=== PATIENT | male | born 1950 | race Caucasian/White ===

== ENCOUNTER 2021-12-03 16:24 | Emergency (ER) | payer MEDICARE, SELFPAY ==
--- NOTE | ~2021-12-03 | XR_ITS ---
EXAMINATION: XR HAND, LEFT CLINICAL INFORMATION: Cut with alfonso [facility] COMPARISON: None TECHNIQUE: PA, lateral, and oblique views of the left hand. FINDINGS: Laceration through the distal third finger involving the finger nail and the medial tuft of the distal phalanx which is mildly distracted/displaced. No additional fracture. No dislocation. The joint spaces throughout the hand and wrist are maintained. XR/XR hand LT 2V IMPRESSION: Soft tissue laceration of the distal end of the third finger with osseous involvement and fracture of the medial tuft of the third distal phalanx.
[2021-12-03 17:25] VITALS: BP 142/98; PULSE 90; RESP 18; TEMP 36.6; O2SAT 98; BMI 26.6
[2021-12-03] MEDS: Lidocaine HCl 1 % MPF 5 ML VIAL SUBCUT (18:23)
[2021-12-03] MEDS: Diphth,Pertus(ACell),Tet Adult 0.5 ML SYRINGE IM (18:24)
--- NOTE | 2021-12-03 18:27 | ED_ITS ---
HPI - Wound/Laceration General Chief Complaint: Wound/Laceration Stated Complaint: left finger laceration Time Seen by Provider: 12/03/21 17:53 Source: patient Mode of arrival: ambulatory History of Present Illness HPI narrative: 71-year-old male with no significant past medical history presenting to the ED complaining left middle finger laceration s/p using mophead trimmer and wrapper this afternoon. Denies taking anticoagulation. Denies numbness, tingling, weakness, decreased ROM, injury to other area. Tetanus unknown Onset (ago): hour(s) Related Data Previous Rx's Medication Instructions Recorded cephalexin 500 mg capsule 500 mg PO QID 7 days #28 caps 12/03/21 oxycodone-acetaminophen 5 mg-325 1 tab PO Q6H PRN pain (scale score 12/03/21 mg tablet (Percocet) 7-10) 3 days #9 tabs Allergies Allergy/AdvReac Type Severity Reaction Status Date / Time oxcarbazepine [OXCARBAZEPINE] Allergy Severe DRESS Unverified 02/07/20 16:22 SYNDROME cat dander [CAT] Allergy Unknown UNKNOWN Unverified 02/07/20 16:22 dog dander [DOG] Allergy Unknown UNKNOWN Unverified 02/07/20 16:22 ENVIRONMENTAL Allergy Unknown UNKNOWN Uncoded 02/07/20 16:22 SEAFOOD Allergy Unknown UNKNOWN Uncoded 02/07/20 16:22 Review of Systems Review of Systems: Constitutional:No Fever, No Chills ENT/Mouth: No Ear Pain, No Nasal Congestion, No sore throat, No Rhinorrhea, No Swallowing Difficulty Cardiovascular: No Chest Pain, No SOB Respiratory: No Cough Gastrointestinal: No Nausea, No Vomiting, No Abdominal pain Genitourinary: No Dysuria, No Urinary Frequency, No Hematuria, No Flank Pain Musculoskeletal: + joint pain, No Myalgias, No Joint Swelling Skin: + Skin Lesions, No rash Neuro: No Weakness, No Numbness, No Paresthesias Yes all other systems are reviewed and are negative [facility] Past Medical History Attestation statement: The following information was validated with the patient. Social History Social History Advance Directives: No Advance Directives Information Provided: Yes Physical Exam Vital Signs: Vital Signs: Last Vital Signs Temp 98 F 12/03/21 17:25 Pulse 90 12/03/21 17:25 Resp 18 12/03/21 17:25 BP 142/98 H 12/03/21 17:25 Pulse Ox 98 12/03/21 17:25 O2 Del Method 12/03/21 17:25 BMI result Body Mass Index 26.6 Const: General: cooperative, healthy appearing and no acute distress Duong entation/consciousness: patient oriented x3 Limitations: no limitations HEENT: Head: Yes normal to inspection and Yes atraumatic Ears: hearing grossly normal bilaterally General nose exam: Normal external nose present Face and sinus: Yes normal facial exam Eyes: General: appearance normal, both eyes and all related structures EOM: EOMs intact bilaterally Neck: Neck: Yes normal visual inspection and Yes no meningeal signs Resp: Effort & Inspection: normal respiratory effort and no respiratory distress Cardio: Rate: regular rate Heart sounds: S1 normal heart sound present and S2 normal heart sound present Peripheral pulses: radial pulses present and ulnar radial pulses present Skin: Rashes: no rashes Neuro: General: patient oriented x3, tone normal and no meningeal signs Gait exam (Neuro): Normal gait present Extrem: Other: Please refer to images above of laceration to left distal middle finger through nail bed. Bleeding controlled. No visible bone. Full range of motion to digit and hand intact. Sensation intact to light touch. [id number] opposition intact Course Course Course Narrative: Spoke with orthopedic KIRBY Hernandez to aid in patient getting close follow-up XR hand LT 2V IMPRESSION: Soft tissue laceration of the distal end of the third finger with osseous involvement and fracture of the medial tuft of the third distal phalanx. >> after wound repaired with sutures dressing applied and finger splint applied MDM - Wound/Laceration MDM Narrative Medical decision making narrative: 71-year-old male with no significant past medical history presenting to the ED complaining left middle finger laceration s/p using mophead trimmer and wrapper this afternoon. On exam vital signs stable, NAD, well-appearing, please refer to images above. Concern for open fracture. No evidence of tendon or nerve injury Plan: X-ray, update tetanus, repair laceration Differential Diagnosis Differential diagnosis: Likely laceration Medical Records Attestation: I reviewed the patient's medical records. Lab Data Attestation: I reviewed the patient's lab results. Procedures Laceration Laceration 1: Site: hand Side (If applicable): left Size (cm): 3 Description: linear Depth: simple, single layer Local Anesthetic: lidocaine 1% (Digital block) Amount of anesthesia used (mL): 4 Pre-repair: wound explored, irrigated extensively and wound margins revised Skin layer closed with: nylon Size (cm): 3-0 Number of sutures: 9 Technique: simple, interrupted and other (Dermabond also used to reinforce nail placement) Discharge Plan Discharge Clinical Impression: Finger laceration, Fracture of distal phalanx of finger Patient Disposition: Home, Self-Care Instructions: Finger Laceration (ED) Additional Instructions: YOU NEED TO FOLLOW-UP WITH A HAND SPECIALIST You have a fracture of the tip of her finger, keep splint on, dry and clean. You a deep laceration of your finger that was repaired today in the ED Keflex as an antibiotic please take as prescribed. Additionally Percocet is an opiate pain medication, take only when pain is severe for the next 3 days. Percocet has Tylenol mixed in do not exceed 4 g in 1 day. You may also take Motrin Keep sutures dry and clean You need to return to any emergency department or urgent care in 7-10 days for suture removal Apply bacitracin and or Neosporin daily If area begins look infected, is red, there is drainage, streaking, or you have fever please return to the emergency department Prescriptions: New cephalexin 500 mg capsule 500 mg PO QID 7 Days Qty: 28 0RF oxycodone-acetaminophen [Percocet] 5-325 mg tablet 1 tab PO Q6H PRN (Reason: pain (scale score 7-10)) 3 Days Qty: 9 0RF Rx Instructions: Partial Fill upon patient request. Referrals: Claribel Morris MD [Physician] - 2 days
[2021-12-03] MEDS: oxyCODONE HCl Immed Release 5 MG TABLET PO (19:40)
[2021-12-03] MEDS: cephALEXin 500 MG CAPSULE PO (19:41)
== END 2021-12-03 19:49 | disposition home or self-care (01) ==
PROVIDERS: Emergency Provider Emergency Medicine; PCP Internal Medicine
DX: S62.623A Displaced fracture of middle phalanx of left middle finger, initial encounter for closed fracture (principal); S61.213A Laceration without foreign body of left middle finger without damage to nail, initial encounter; S60.413A Abrasion of left middle finger, initial encounter; W29.3XXA Contact with powered garden and outdoor hand tools and machinery, initial encounter; Y93.9 Activity, unspecified; Y92.007 Garden or yard of unspecified non-institutional (private) residence as the place of occurrence of the external cause; Y99.9 Unspecified external cause status; Z79.899 Other long term (current) drug therapy
CPT/HCPCS: 12042; 29130; 73120; 90471; 90715; 99283; 99284

== ENCOUNTER → 2021-12-09 10:41 | Outpatient (BNVA) | payer MEDICARE, SELFPAY | PROVIDERS: PCP Internal Medicine; Visit Provider Physician Assistant | DX: S61.219A Laceration without foreign body of unspecified finger without damage to nail, initial encounter (principal); S62.639A Displaced fracture of distal phalanx of unspecified finger, initial encounter for closed fracture | CPT/HCPCS: 99202 ==

== ENCOUNTER → 2021-12-18 11:17 | Outpatient (BNVA) | payer MEDICARE, SELFPAY | PROVIDERS: PCP Internal Medicine; Visit Provider Physician Assistant | DX: S62.633A Displaced fracture of distal phalanx of left middle finger, initial encounter for closed fracture (principal); S61.213A Laceration without foreign body of left middle finger without damage to nail, initial encounter | CPT/HCPCS: 99212 ==

== ENCOUNTER 2023-11-14 15:44 | Outpatient (AMB) | payer MEDICARE, SELFPAY ==
--- NOTE | 2023-11-14 13:06 | MHC.OFFVISPS ---
Intake Intake Visit Reasons: depression Assistant Media Planner Required: No Allergies oxcarbazepine [OXCARBAZEPINE] Allergy (Severe, Unverified 12/18/21 11:23) DRESS SYNDROME cat dander [CAT] Allergy (Unknown, Unverified 12/18/21 11:23) UNKNOWN dog dander [DOG] Allergy (Unknown, Unverified 12/18/21 11:23) UNKNOWN ENVIRONMENTAL Allergy (Unknown, Uncoded 12/18/21 11:23) UNKNOWN SEAFOOD Allergy (Unknown, Uncoded 12/18/21 11:23) UNKNOWN HPI- Psychiatric Chief Complaint: depression HPI Narrative: pt is 2.5 + yrs sober; he has been compliant with meds except for topomax which he has not had for 2+ weeks after he ran out of refills. 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 He denies any other mdical changes; no side effects from meds; we discussed possible slow taper in future to decrease the overall number of medication he is on. Past Psychiatric History: He reports he has been to rehabs. 2 detox 2018 and in[facility] [employer] [facility] [employer] started drinking around age 20. First time tried to get sober and get tx was 22 yrs ago. He 32 years ago. most recent inpatient november 2020 went to [facility] and then relapsed shortly after. He reports no legal issues , no DUIs. He says he is staying home mostly but his family is concerned about him drinking. He does admit upon questioning that he is concerned too. Subjective Subjective Subjective Medication Compliance: Yes Side effects from medications: No Review of Systems Medical Review of Systems: unchanged Mental Status Exam Mental Status Exam Patient Appearance: Well Grooomed and Appropriate Patient Orientation: Person, Place, Time and Situation Level of Consciousness: Awake and Appropriate Patient Behavior: Appropriate and Anxious Mood Description: Nervous Affect Description: Anxious Patient Cognition Impaired: No Ability to Follow Directions: Good Speech Pattern: Clear Memory Description: Intact Hallucinations: None Delusions: Not Present Thought Process: Intact and Goal Oriented Thought Content: positive for Intact and positive for Goal Oriented Judgement: Fair Assessment and Plan Assessment & Plan (1) Major depressive disorder, recurrent episode with anxious distress: Status: Acute Code(s): F33.9 - Major depressive disorder, recurrent, unspecified (2) SILAS (generalized anxiety disorder): Status: Acute Code(s): F41.1 - Generalized anxiety disorder (3) Alcohol dependence in sustained full remission: Status: Acute Code(s): F10.21 - Alcohol dependence, in remission Plan restart topomax 25 mg tid continue below meds Medications: New topiramate 25 mg PO TID 90 tabs 3RF bupropion HCl XL (Wellbutrin XL) 300 mg PO QAM 90 tabs 1RF gabapentin 300 mg PO TID 90 caps 1RF hydroxyzine HCl 50 mg PO TID 90 tabs 2RF Refilled acamprosate 666 mg (2 x 333 mg) PO TID 180 tabs 1RF duloxetine 60 mg PO DAILY 90 caps 1RF mirtazapine 15 mg PO BEDTIME 90 tabs 1RF Counseling and coordination of Care Pt. Self Management counseling: Exercise, Maintenance-social rhythm, Mindfulness, Mod caffeine/ETOH intake, Sleep hygiene and General coping skills Medication management counseling: Effectiveness, Side effects, Dosing range, Duration, Drug interaction and Adherence Diagnosis and Prognosis Counseling: Accuracy of diagnosis, Prognosis over time, Impact of diagnosis on life functions, Impact of family relationship, Problematic behaviors secondary to diagnosis and Adequacy of current interventions Details: I spent 45 minutes reviewing the record, seeing the patient and documenting in the medical record. Counseling provided to the patient/caregiver as outlined below. Addressed patient/caregiver concerns regarding current medication regime including effective adherence. Addressed patient/caregiver concerns regarding diagnosis and prognosis including accuracy of diagnosis, prognosis over time, impact of diagnosis. Addressed patient/caregiver concerns regarding impact of recent stressors. [facility] Social History Patient Tobacco Use Status: Current everyday Tobacco user Current occupational status: retired Current occupation: rt hand Social History: lives with Substance History: etoh - stopped 2.5 yrs ago Trauma History: none Coding Level of Care Code Est Pt Level 5 (02189) Diagnoses Major depressive disorder, recurrent episode with anxious distress F33.9 SILAS (generalized anxiety disorder) F41.1 Alcohol dependence in sustained full remission F10.21
== END 2023-11-14 16:28 | disposition home or self-care (01) ==
LOC: HO.HOP 15:44
PROVIDERS: PCP Internal Medicine; Visit Provider Clinical Nurse Specialist Psychiatric/Mental Health
DX: F33.2 Major depressive disorder, recurrent severe without psychotic features (principal); F41.1 Generalized anxiety disorder; F10.21 Alcohol dependence, in remission
CPT/HCPCS: 99215

== ENCOUNTER → 2023-11-14 15:44 | Outpatient (BNVA) | payer MEDICARE, SELFPAY | PROVIDERS: PCP Internal Medicine; Visit Provider Clinical Nurse Specialist Psychiatric/Mental Health | DX: F33.9 Major depressive disorder, recurrent, unspecified (principal); F41.1 Generalized anxiety disorder; F10.21 Alcohol dependence, in remission; Z79.899 Other long term (current) drug therapy | CPT/HCPCS: 99212 ==

== ENCOUNTER 2024-01-31 13:57 | Outpatient (AMB) | payer MEDICARE, SELFPAY ==
--- NOTE | 2024-01-31 14:11 | MHC.OFFVISPS ---
Intake Intake Visit Reasons: depression Electrical Supervisor Required: No Allergies oxcarbazepine [OXCARBAZEPINE] Allergy (Severe, Unverified 12/18/21 11:23) DRESS SYNDROME cat dander [CAT] Allergy (Unknown, Unverified 12/18/21 11:23) UNKNOWN dog dander [DOG] Allergy (Unknown, Unverified 12/18/21 11:23) UNKNOWN ENVIRONMENTAL Allergy (Unknown, Uncoded 12/18/21 11:23) UNKNOWN SEAFOOD Allergy (Unknown, Uncoded 12/18/21 11:23) UNKNOWN Medication List - Last Reconciled 01/31/24 by Rehana Ahmadi APRN acamprosate 666 mg (2 x 333 mg) PO TID albuterol sulfate 90 mcg/actuation inhalation amlodipine 2.5 mg PO DAILY bupropion HCl XL (Wellbutrin XL) 300 mg PO QAM duloxetine 60 mg PO DAILY finasteride 5 mg PO DAILY gabapentin 300 mg PO TID hydroxyzine HCl 50 mg PO TID hydroxyzine pamoate 50 mg PO TID losartan 100 mg PO DAILY mirtazapine 15 mg PO BEDTIME oxycodone-acetaminophen 5-325 mg (Percocet) 1 tab PO Q6H PRN 3 days rosuvastatin 10 mg PO BEDTIME tamsulosin 0.8 mg PO DAILY topiramate 50 mg PO TID HPI- Psychiatric Chief Complaint: depression HPI Narrative: pt reorts little anxiety or depression; mood improved. He maintains abstinence from ETOH; he has been around others who are drinking increased alcohol throughout the summer; he denies significant trigger or craving; he would like to increase the topomax againto 50mg from 25mg. He denies SI or HI; no significant medical changes; had annula physical and blood work done; no concerns re blood work per pt. Past Psychiatric History: He reports he has been to rehabs. 2 detox 2019 and inpt [facility] started drinking around age 20. First time tried to get sober and get tx was 22 yrs ago. He 32 years ago. most recent inpatient november 2020 went to [facility] and then relapsed shortly after. He reports no legal issues , no DUIs. He says he is staying home mostly but his family is concerned about him drinking. He does admit upon questioning that he is concerned too. Subjective Subjective Subjective Medication Compliance: Yes Side effects from medications: No Review of Systems Medical Review of Systems: unchanged Mental Status Exam Mental Status Exam Patient Appearance: Well Grooomed and Appropriate Patient Orientation: Person, Place, Time and Situation Level of Consciousness: Awake and Appropriate Patient Behavior: Appropriate and Anxious Mood Description: Anxious Affect Description: Anxious Patient Cognition Impaired: No Ability to Follow Directions: Good Speech Pattern: Clear Memory Description: Intact Hallucinations: None Delusions: Not Present Thought Process: Intact Thought Content: positive for Intact Assessment and Plan Assessment & Plan (1) Alcohol dependence in sustained full remission: Status: Acute Code(s): F10.21 - Alcohol dependence, in remission (2) SILAS (generalized anxiety disorder): Status: Acute Code(s): F41.1 - Generalized anxiety disorder (3) Major depressive disorder, recurrent episode with anxious distress: Status: Acute Code(s): F33.9 - Major depressive disorder, recurrent, unspecified Plan increase topomax 50mg TID continue acamprosate, duloxetine, gabapentin, wellbutrin, mirtazepine hydroxyzine and topomax consider slow taper off some meds in future (desprescribeing now since full sustained sobriety) Medications: Refilled acamprosate 666 mg (2 x 333 mg) PO TID 180 tabs 1RF duloxetine 60 mg PO DAILY 90 caps 1RF gabapentin 300 mg PO TID 90 caps 1RF bupropion HCl XL (Wellbutrin XL) 300 mg PO QAM 90 tabs 1RF hydroxyzine HCl 50 mg PO TID 90 tabs 2RF mirtazapine 15 mg PO BEDTIME 90 tabs 1RF Discontinued topiramate Discontinued Reason: Doctor's Order 25 mg PO TID 90 tabs 3RF Counseling and coordination of Care Details: I spent [] minutes reviewing the record, seeing the patient and documenting in the medical record. Counseling provided to the patient/caregiver as outlined below. Addressed patient/caregiver concerns regarding current medication regime including effective adherence. Addressed patient/caregiver concerns regarding diagnosis and prognosis including accuracy of diagnosis, prognosis over time, impact of diagnosis. Addressed patient/caregiver concerns regarding impact of recent stressors. [facility] Social History Patient Tobacco Use Status: Current everyday Tobacco user Current occupational status: retired Current occupation: rt hand Social History: lives with Substance History: etoh - stopped 2.5 yrs ago Trauma History: none Coding Level of Care Code Est Pt Level 4 (61114) Diagnoses Alcohol dependence in sustained full remission F10.21 SILAS (generalized anxiety disorder) F41.1 Major depressive disorder, recurrent episode with anxious distress F33.9
== END 2024-01-31 14:33 | disposition home or self-care (01) ==
LOC: HO.HOP 13:57
PROVIDERS: PCP Internal Medicine; Visit Provider Clinical Nurse Specialist Psychiatric/Mental Health
DX: F10.21 Alcohol dependence, in remission (principal); F41.1 Generalized anxiety disorder; F33.9 Major depressive disorder, recurrent, unspecified
CPT/HCPCS: 99214

== ENCOUNTER → 2024-01-31 13:57 | Outpatient (BNVA) | payer MEDICARE, SELFPAY | PROVIDERS: PCP Internal Medicine; Visit Provider Clinical Nurse Specialist Psychiatric/Mental Health | DX: F10.21 Alcohol dependence, in remission (principal); F33.9 Major depressive disorder, recurrent, unspecified; F41.1 Generalized anxiety disorder | CPT/HCPCS: 99212 ==

== ENCOUNTER 2025-05-17 20:23 | Emergency (ER) | payer MEDICARE, SELFPAY ==
--- NOTE | ~2025-05-17 | XR_ITS ---
CLINICAL HISTORY: SOB 2 view chest x-ray Comparison: None provided Findings: Mild bibasilar and hilar opacities may reflect atelectasis/pneumonitis. No lobar consolidation. No pneumothorax. Emphysematous changes are redemonstrated. Imaged right dorsal-lateral rib fractures appear old/chronic. Degenerative changes include imaged shoulders and imaged spine. Mild vertebral height losses are age indeterminate by radiographs and likely old given sclerosis. Question small pleural effusions versus pleural thickening given blunting of the costophrenic angles. IMPRESSION: Mild atelectasis/pneumonitis. This document has been electronically signed by: Dada Lozada MD on 05/17/2025 22:02:16
--- NOTE | 2025-05-17 20:28 | ECG_ITS ---
Test Reason : SOB Blood Pressure : */* mmHG Vent. Rate : 90 BPM Atrial Rate : 90 BPM P-R Int : 182 ms QRS Dur : 86 ms QT Int : 360 ms P-R-T Axes : 74 50 66 degrees QTcB Int : 440 ms Normal sinus rhythm Normal ECG When compared with ECG of 29-Oct-2015 07:46, No significant change was found Referred By: Bridgette Espinal Electronically Signed By: STANISLAV SHAH MD
[2025-05-17 20:31] VITALS: BP 160/90; BP 166/72; PULSE 75; PULSE 88; RESP 22; TEMP 36.3; O2SAT 91; O2SAT 92; BMI 25.8
[2025-05-17 20:37] VITALS: BP 166/72; PULSE 88; RESP 22; TEMP 36.3; O2SAT 92
[2025-05-17 21:04] LABS: MANUAL DIFF FLAG NO
[2025-05-17 21:05] LABS: Hematocrit 42.9 % (42.0-52.0); Hemoglobin 14.7 g/dl (14.0-18.0); Imm Gran Abs Auto 0.01 X10*3/uL (0.00-0.03); Imm Gran Pct Auto 0.1 % (0.0-0.4); Lymphocytes Absolute Auto 1.2 X10*3/uL (1.2-4.9); Mean Corpuscular HGB Conc 34.3 g/dl (31.0-36.0); Mean Corpuscular Hemoglobin 31.7 pg (27.0-33.0); Mean Corpuscular Volume 92.5 fL (80.0-98.0); NRBC Abs Auto 0.000 X10*3/uL (0.0-0.012); NRBC Pct Auto 0.0 /100WBC (0.0-0.2); Platelet Count 244 X10*3/uL (160-400); Red Blood Count 4.64 X10*6/uL (4.60-5.80); White Blood Count 7.2 X10*3/uL (4.8-10.8)
[2025-05-17 21:05] LABS: Venous Blood Gas Refer to POC result
[2025-05-17 21:06] LABS: VBG HCO3 26 mmol/L (22-26); VBG O2 % Saturation 63.0 %
--- NOTE | 2025-05-17 21:15 | ED.SOB ---
HPI - SOB/Dyspnea General Chief Complaint: Dyspnea Stated Complaint: diff breathing Time Seen by Provider: 05/17/25 20:55 Source: patient, EMS, RN notes reviewed and old records reviewed Mode of arrival: EMS Limitations: no limitations History of Present Illness ED Provider: Dr. Tameka Barnes HPI Narrative: 74 year old male with history of HT and tobacco use, no formal COPD diagnosis yet, presents to the Emergency Department with acute onset shortness of breath that began approximately two days ago and has progressively worsened to the point that his called EMS. He endorses subjective fever and a predominantly dry cough with minimal sputum production. He denies home oxygen use. He reports being a current smoker but has never been formally diagnosed with COPD and does not use inhalers. He received the influenza vaccination this season. He denies nausea, vomiting, diarrhea, or hematochezia. He admits non-adherence with his prescribed blood pressure medication. No known drug allergies. Patient reports and 'about everybody I know' is sick. Related Data Home Medications ?Medication ?Instructions ?Recorded ?Confirmed amlodipine 2.5 mg tablet 2.5 mg PO DAILY 12/09/21 01/31/24 finasteride 5 mg tablet 5 mg PO DAILY 12/09/21 01/31/24 losartan 100 mg tablet 100 mg PO DAILY 12/09/21 01/31/24 rosuvastatin 10 mg tablet 10 mg PO BEDTIME 12/09/21 01/31/24 tamsulosin 0.4 mg capsule 0.8 mg PO DAILY 12/09/21 01/31/24 albuterol sulfate 90 mcg/actuation inhalation 11/14/23 01/31/24 aerosol inhaler Previous Rx's ?Medication ?Instructions ?Recorded acamprosate 333 mg tablet,delayed 666 mg (2 x 333 mg) PO TID #180 01/31/24 release tabs bupropion HCl 300 mg 24 hr tablet, 300 mg PO QAM #90 tabs 10/08/24 extended release (Wellbutrin XL) duloxetine 60 mg capsule,delayed 60 mg PO DAILY #90 caps 10/08/24 release gabapentin 400 mg capsule 400 mg PO TID #270 caps 10/08/24 naltrexone 50 mg tablet 50 mg PO DAILY #90 tabs 12/10/24 topiramate 25 mg tablet 25 mg PO TID #90 tabs 04/04/25 mirtazapine 15 mg tablet 15 mg PO BEDTIME #30 tabs 05/06/25 hydroxyzine HCl 50 mg tablet 50 mg PO TID #90 tabs 05/13/25 albuterol sulfate 90 mcg/actuation 2 inh inhalation Q4H PRN shortness 05/17/25 breath activated powder inhaler of breath #1 ea ondansetron 4 mg disintegrating 4 mg PO Q8H PRN nausea and 05/17/25 tablet vomiting #10 tabs oseltamivir 75 mg capsule (Tamiflu) 75 mg PO BID 5 days #10 caps 05/17/25 Allergies Allergy/AdvReac Type Severity Reaction Status Date / Time oxcarbazepine (OXCARBAZEPINE) Allergy Severe DRESS Verified 05/17/25 20:34 SYNDROME cat dander (CAT) Allergy Unknown UNKNOWN Verified 05/17/25 20:34 dog dander (DOG) Allergy Unknown UNKNOWN Verified 05/17/25 20:34 ENVIRONMENTAL Allergy Unknown UNKNOWN Uncoded 05/17/25 20:34 SEAFOOD Allergy Unknown UNKNOWN Uncoded 05/17/25 20:34 Review of Systems Review of Systems: as per HPI, full review of systems performed and negative but for the above mentioned pertinent positives and negatives. [facility] Social History Social History Patient Tobacco Use Status: Current everyday Tobacco user Smoked in Last 30 Days: Yes Use of substances other than those prescribed or required for medical reasons: No Advance Directives: No Advance Directives Information Provided: No Do you have a plan to hurt others: No Plan Current occupational status: retired Current occupation: rt hand Physical Exam Exam: Exam: GENERAL: Ill-appearing, chronically ill-appearing, moderate respiratory distress. SKIN: Normal skin color for ethnicity, warm, dry, no rashes noted. HEENT: Normocephalic, atraumatic, no stridor, EOMI. NECK: Soft, supple, full ROM, midline structures nontender, no step-offs, no deformities, no lymphadenopathy. CHEST: Heart regular tachycardia, barrel chest, symmetric chest rise and fall. PULMONARY: Diffuse, faint, wheezes throughout, tachypnea, diminished air movement bilaterally, moderate respiratory distress. ABDOMINAL: Soft,nontender, quiet bowel sounds in all quadrants. : Deferred. MUSCULOSKELETAL: Normal tone, full range of motion, no deformities, no peripheral edema. NEURO: Alert and oriented to person, CN II through XII intact, no focal neurologic deficits. PSYCHIATRIC: Anxious affect, appropriate demeanor. Vital Signs: Vital Signs: Last Vital Signs Temp 97.4 F 05/17/25 22:48 Pulse 102 H 05/17/25 22:48 Resp 17 05/17/25 22:48 BP 136/74 05/17/25 22:48 Pulse Ox 94 05/17/25 22:48 O2 Del Method Nasal Cannula 05/17/25 22:48 O2 Flow Rate 2 05/17/25 22:48 BMI result Body Mass Index 25.8 Medications Administered Discontinued Medications Generic Name Dose Route Start Last Admin Trade Name Freq PRN Reason Stop Dose Admin Acetaminophen 975 mg 05/17/25 22:52 05/17/25 23:01 Acetaminophen 325 Mg Tablet PO 05/17/25 22:53 975 mg ONCE ONE Administration Albuterol Sulfate 5 mg/ 0 mg 05/17/25 21:38 05/17/25 21:41 Albuterol/Ipratropium 3 ml INHALE 05/17/25 21:39 7.5 each ONCE ONE Administration Methylprednisolone Sodium Succinate 60 mg 05/17/25 21:18 05/17/25 21:37 Methylprednisolone Sod Succ 125 Mg/2 Ml Vial IVPUSH 05/17/25 21:19 60 mg ONCE ONE Administration Medical Decision Making Medical Decision Making [facility] Narrative: Patient presents today with chief complaint of shortness of breath. Differential diagnosis includes, but is not limited to, upper respiratory infection, pneumonia, COPD exacerbation, asthma exacerbation, CHF, pneumothorax, pleural effusion, pulmonary embolism, ACS. Broad-based work-up will be initiated to evaluate for etiology of patient's symptoms. Problem #1: Acute dyspnea with fever ? rule out pneumonia vs influenza Assessment: 2-day history of worsening shortness of breath with fever and dry cough; current smoker; mild wheeze on exam. Differential includes viral influenza versus bacterial pneumonia. Plan: - Chest X-ray (completed) ? await read. - Blood work obtained ? await results. - Monitor clinical status in ED. Problem #2: Wheezing / Bronchospasm Assessment: Persistent wheeze noted on exam despite initial nebulizer treatment. Plan: - Administer additional nebulizer breathing treatment per ED protocol. Problem #3: Medication non-adherence (antihypertensives) Assessment: Patient admits he has not been taking his blood pressure medication. Plan: continue to monitor BP in the setting of acute illness, allow permissive hypertension - Discussed importance of adherence with patient. Differential Diagnosis Differential Diagnoses: The differential diagnosis associated with the presentation includes (as above) Admission/Observation Consideration of admission/observation: Escalation of care including admission/observation considered Lab Data MDM Lab Attestation statement: I reviewed the patient's lab results. 05/17/25 20:50 05/17/25 20:50 Labs: Lab Results 05/17/25 05/17/25 Range/Units 20:50 21:03 WBC 7.2 (4.8-10.8) X10*3/uL RBC 4.64 (4.60-5.80) X10*6/uL Hgb 14.7 (14.0-18.0) g/dl Hct 42.9 (42.0-52.0) % MCV 92.5 (80.0-98.0) fL MCH 31.7 (27.0-33.0) pg MCHC 34.3 (31.0-36.0) g/dl RDW 13.8 (11.0-16.0) % Plt Count 244 (160-400) X10*3/uL MPV 7.6 L (9.4-12.4) fL Immature Gran % (Auto) 0.1 (0.0-0.4) % Neut % (Auto) 65.1 (45-73) % Lymph % (Auto) 16.2 L (20-40) % [place] % (Auto) 17.7 H (2-11) % Eos % (Auto) 0.3 (0-4) % Baso % (Auto) 0.6 (0-2) % Lymph # (Auto) 1.2 (1.2-4.9) X10*3/uL [place] # (Auto) 1.3 H (0.1-1.2) X10*3/uL Eos # (Auto) 0.0 (0.0-0.4) X10*3/uL Baso # (Auto) 0.0 (0.0-0.2) X10*3/uL Abs Immat Gran (auto) 0.01 (0.00-0.03) X10*3/uL Absolute Neuts (auto) 4.7 (2.0-8.3) x10*3/uL Absolute Nucleated RBC 0.000 (0.0-0.012) X10*3/uL Nucleated RBC % (auto) 0.0 (0.0-0.2) /100WBC VBG pH 7.36 (7.32-7.43) VBG pCO2 46 mmHg VBG pO2 40 mmHg VBG HCO3 26 (22-26) mmol/L VBG O2 Saturation 63.0 % VBG Base Excess 0.5 mmol/L Sodium 131 L (135-145) mmol/L Potassium 3.9 (3.3-5.1) mmol/L Chloride 96 (96-108) mmol/L Carbon Dioxide 25 (22-29) mmol/L Anion Gap 14 (12-20) BUN 6 L (9-16) mg/dL Creatinine 0.91 (0.5-1.4) mg/dL Estim Creat Clear Calc 75.7 Estimated GFR > 60 Random Glucose 106 (60-115) mg/dL Calcium 8.9 (8.4-10.2) mg/dL Magnesium 1.9 (1.6-2.6) mg/dL Total Bilirubin 0.3 (0.0-1.0) mg/dL AST 32 (5-37) U/L ALT 22 (0-40) U/L Alkaline Phosphatase 82 (39-117) U/L Troponin I High Sens 5.8 (<3.5-35.0) ng/L Total Protein 6.4 L (6.5-8.0) g/dL Albumin 4.2 (3.5-5.0) g/dL Influenza Type A (PCR) POSITIVE A (Negative) Influenza Type B (PCR) NEGATIVE (Negative) RSV RNA Qual (PCR) NEGATIVE (Negative) SARS-CoV-2 RNA (RT-PCR) NEGATIVE (Negative) Independent Interpretation I performed an independent interpretation of an: EKG and Plain X-Ray Interpretation: My independent interpretation of the ECG reveals normal sinus rhythm with rate of 90, normal axis, normal intervals, no ST elevations or depressions to suggest ischemic changes, relatively unchanged from previous on 10/29/2015. Radiology Impression Discussion of test interpretation with radiology: I have reviewed the radiologist's reading. Independent Historian Clinical information obtained from an independent historian. History obtained from or confirmed by: EMS External Record Review External record reviewed: Inpatient record Chronic Conditions Patient?s care impacted by: Hypertension and Other (COPD) Discharge Plan Discharge Clinical Impression: Influenza A Patient Disposition: Home, Self-Care Instructions: Influenza (ED) Additional Instructions: Keep your mask on if you have to go into public for any reason while you are ill. Use Tylenol and Motrin around the clock for fever and body aches. Use Zofran (ondansetron) as needed for nausea. Take Tamiflu for the next 5 days. Use your albuterol inhaler as needed for wheezing/coughing fits. Return to the emergency department with any new or worsening symptoms including: Worsening shortness of breath, continued fevers despite medications, inability to tolerate food or drink. Call 911 with any medical emergency. Prescriptions: New oseltamivir [Tamiflu] 75 mg capsule 75 mg PO BID 5 Days Qty: 10 0RF albuterol sulfate 90 mcg/actuation aerosol powdr breath activated 2 inh inhalation Q4H PRN (Reason: shortness of breath) Qty: 1 0RF ondansetron 4 mg tablet,disintegrating 4 mg PO Q8H PRN (Reason: nausea and vomiting) Qty: 10 0RF No Action bupropion HCl [Wellbutrin XL] 300 mg tablet extended release 24 hr 300 mg PO QAM Qty: 90 2RF duloxetine 60 mg capsule,delayed release(DR/EC) 60 mg PO DAILY Qty: 90 6RF gabapentin 400 mg capsule 400 mg PO TID Qty: 270 1RF naltrexone 50 mg tablet 50 mg PO DAILY Qty: 90 2RF topiramate 25 mg tablet 25 mg PO TID Qty: 90 0RF mirtazapine 15 mg tablet 15 mg PO BEDTIME Qty: 30 0RF hydroxyzine HCl 50 mg tablet 50 mg PO TID Qty: 90 0RF tamsulosin 0.4 mg capsule 0.8 mg PO DAILY amlodipine 2.5 mg tablet 2.5 mg PO DAILY losartan 100 mg tablet 100 mg PO DAILY finasteride 5 mg tablet 5 mg PO DAILY rosuvastatin 10 mg tablet 10 mg PO BEDTIME albuterol sulfate 90 mcg/actuation HFA aerosol inhaler inhalation acamprosate 333 mg tablet,delayed release (DR/EC) 666 mg PO TID Qty: 180 1RF Print Language: Syrian
--- OUTSIDE RECORDS SUMMARY | 2025-05-17 21:16 | XMS_ITS | Patient Health Record ---
Author Organization [facility] [place] Address [address] [place] [address] Care Team Providers Care Solution Strategist Name Role Phone Dimitri Sanchez MD Primary Care Provider Cecilio Martinez Unavailable [phone] Allergies No Known Allergies Reason For Referral No Information Medications Medication SIG (Take, Route, Frequency, Duration) Notes Start Date End Date Status amLODIPine Besylate 2.5 MG 1 tablet Oral ly Once a day Active Rosuvastatin Calcium 10 MG 1 tablet Oral ly Once a day Active Losartan Potassium 100 MG 1 tablet Orall y Once a day Active Social History Tobacco Use: Social History Observation Description Date Details (start date - stop date) Current Smoker 01/22/1985 - NA Tobacco use other than smoking: Question Answer Notes Are you an other tobacco user? No Tobacco Control (Standard) Question Answer Notes Tobacco use: Current smoker When did you start smoking? 01/22/1985 How many cigarettes a day do you smoke? 6-10 How soon after you wake up d o you smoke your first cigarette? After 60 minutes Are you interested in quitting? Not ready to john t Additional Findings: Tobacco user Light cigarett e smoker (1-9 cigs/day) AUDIT-C (Standard) Question Answer Notes Did you have a drink containing alcohol in the p ast year? No Points 0 Interpretation Negative Problems Problem Type SNOMED Code ICD Code Onset Dates Problem Status W/U Status Risk Notes Problem Acquired hammer toe of left foot (2751123967808510) Other hammer toe(s) (acquired), left foot (M20.42) Active confirmed Problem Localized, primary osteoarthritis of the ankle and/or foot (067327422) Arthritis of joint of lesser toe, left (M19.072) Active confirmed Vital Signs Blood pressure diastolic 70 mm Hg 01/30/2025 Height 5ft 9.5in in 01/30/2025 Blood pressure systolic 130 mm Hg 01/30/2025 Weight 190 lbs 01/30/2025 BMI 27.65 kg/m2 01/30/2025 Encounters Encounter [facility] Date [facility] [address] 01/30/[facility]25 Cecilio Montoya Pain in left toe(s) M79.675 ; Other hammer toe(s) (acquired), left foot M20.42 ; Arthritis of joint of lesser toe, left M19.072 and Subluxation of metatarsophalangeal joint of toe, initial encounter S93.149A [facility] [address] [place] [address] 10/30/2024 [facility] [address] 01/30/2025 Cecilio Montoya Assessments Encounter Date Diagnosis (ICD Code) Assessment Notes Treatment Notes Treatment Clinical Notes Section Notes 01/30/2025 Pain in left toe(s) (ICD-10 - M79.675) 01/30/2025 Other hammer toe(s) (acquired), left foot (ICD-10 - M20.42) 01/30/2025 Arthritis of joint o f lesser toe, left (ICD-10 - M19.072) 01/30/2025 Subluxation of metatarsophalangeal joint of toe, initial encounter (ICD-10 - S93.149A) Plan Of Treatment Pending Test Test Name Order Date X ray : Foot, left 3V 01/30/2025 Insurance Providers Payer Name Payer Address Payer Phone Subscriber Number Group Number Insured Name Patient Relationship to Insured Coverage Start Date Coverage End Date Medicare [facility] [facility] [address] [place] [address] [phone] [id number] Jeremias Eddy Self - patient is the insured 8 [employer] [address] [place] [address] [phone] [id number] Jeremias Eddy Self - patient is the insured 8 Medical (General) History Medical History History ICD Code Chicken pox High Blood Pressure Measles Mumps Cholesterol
[2025-05-17 21:29] LABS: Alanine Aminotransferase 22 U/L (0-40); Anion Gap 14 (12-20); Aspartate Amino Transferase 32 U/L (5-37); Blood Urea Nitrogen 6 mg/dL (9-16); Calcium 8.9 mg/dL (8.4-10.2); Carbon Dioxide 25 mmol/L (22-29); Chloride 96 mmol/L (96-108); Creatinine Clr Calc Pharmacy 75.7; Estimated Glomerular Filt Rate > 60; Magnesium 1.9 mg/dL (1.6-2.6); Potassium 3.9 mmol/L (3.3-5.1); Sodium 131 mmol/L (135-145)
[2025-05-17 21:30] LABS: Albumin Level 4.2 g/dL (3.5-5.0); Alkaline Phosphatase 82 U/L (39-117); Total Protein 6.4 g/dL (6.5-8.0)
[2025-05-17 21:37] LABS: Troponin-I High Sensitivity 5.8 ng/L (<3.5-35.0)
[2025-05-17] MEDS: Albuterol Sulfate 5 MG, Albuterol/Iprat 2.5/0.5MG 3 ML 3 ML INHALE (21:41)
[2025-05-17 21:42] VITALS: PULSE 92; RESP 18; O2SAT 94
[2025-05-17 21:43] LABS: Resp Syncy Virus RNA Qual PCR NEGATIVE (Negative); SARS COV2 PCR INHOUSE NEGATIVE (Negative)
[2025-05-17 22:48] VITALS: BP 136/74; PULSE 102; RESP 17; TEMP 36.3; O2SAT 94
[2025-05-18 00:03] VITALS: BP 123/64; PULSE 86; RESP 17; TEMP 36.9; O2SAT 90
[2025-05-18 01:05] VITALS: BP 123/64; PULSE 86; RESP 17; TEMP 36.9; O2SAT 90
== END 2025-05-18 | disposition home or self-care (01) ==
PROVIDERS: Physician Assistant Medical; Emergency Provider Emergency Medicine; PCP Internal Medicine
DX: J10.1 Influenza due to other identified influenza virus with other respiratory manifestations (principal); R06.02 Shortness of breath; J98.11 Atelectasis; J98.4 Other disorders of lung; I10 Essential (primary) hypertension; F17.200 Nicotine dependence, unspecified, uncomplicated; Z71.6 Tobacco abuse counseling; Z79.899 Other long term (current) drug therapy
CPT/HCPCS: 71046; 80053; 82803; 83735; 84484; 85025; 87637; 93005; 94640; 96374; 99284; 99285; J2919

== ENCOUNTER → 2025-05-17 20:28 | Outpatient (BNV) | payer MEDICARE, SELFPAY | PROVIDERS: Emergency Provider Emergency Medicine; PCP Internal Medicine; Visit Provider Radiology Neuroradiology | DX: R06.02 Shortness of breath (principal) | CPT/HCPCS: 71046 ==

== ENCOUNTER → 2025-05-17 20:28 | Outpatient (BNV) | payer MEDICARE, SELFPAY | PROVIDERS: Emergency Provider Emergency Medicine; PCP Internal Medicine; Visit Provider Internal Medicine Cardiovascular Disease | DX: R06.02 Shortness of breath (principal) | CPT/HCPCS: 93010 ==